=== PATIENT | female | born 1955 | race Caucasian/White ===

== ENCOUNTER → 2017-12-06 | Outpatient (CLI) | payer MEDICARE, OTHER ==
[~2017-12-06] MED LIST: AMPH1TAB66 PO; ASPI1TAB93 PO; CLON2TAB PO; KLON2TAB PO; LEVO.2 PO; LEVO200T4 PO; LORT5TAB PO; MECL-72 PO; MIRTA15 PO; OXYC1TAB36 PO; QUET1TAB10 PO
[2017-12-06 10:07] LABS: AUTOMATED NEUTROPHIL # 5.8 TH/MM3 (1.8-7.7); BASOPHIL # 0.1 TH/MM3 (0-0.2); BASOPHIL % 0.7 % (0.0-2.0); EOSINOPHIL # 0.4 TH/MM3 (0-0.4); EOSINOPHIL % 4.3 % (0.0-4.0); HEMATOCRIT 38.5 % (35.0-46.0); HEMOGLOBIN 13.1 GM/DL (11.6-15.3); LYMPH % 24.3 % (9.0-44.0); LYMPHOCYTE # 2.2 TH/MM3 (1.0-4.8); MEAN CELL VOLUME 87.7 FL (80.0-100.0); MEAN CORPUSCULAR HEMOGLOBIN 29.9 PG (27.0-34.0); MEAN CORPUSCULAR HGB CONC 34.1 % (32.0-36.0); MEAN PLATELET VOLUME 8.6 FL (7.0-11.0); MONO % 6.4 % (0.0-8.0); MONOCYTE # 0.6 TH/MM3 (0-0.9); NEUT % 64.3 % (16.0-70.0); PLATELET COUNT 204 TH/MM3 (150-450); RED BLOOD COUNT 4.38 MIL/MM3 (4.00-5.30); RED CELL DISTRIBUTION WIDTH 13.9 % (11.6-17.2)
[2017-12-06 10:16] LABS: BILIRUBIN, URINE NEG (NEG); BLOOD, URINE MOD (NEG); GLUCOSE,URINE NEG (NEG); KETONE, URINE NEG (NEG); NITRITE,URINE NEG (NEG); URINE COLOR YELLOW (YELLW/STRAW); URINE LEUKOCYTE ESTERASE NEG (NEG)
[2017-12-06 10:18] LABS: MUCUS URINE FEW /lpf (OCC); SQUAMOUS EPITHELIAL CELL URINE 1 /hpf (0-5)
[2017-12-06 10:18] LABS: PROTHROMBIN TIME - PATIENT 10.3 SEC (9.8-11.6)
[2017-12-06 10:41] LABS: ALBUMIN 3.6 GM/DL (3.4-5.0); AST (GOT) 15 U/L (15-37); BLOOD UREA NITROGEN 18 MG/DL (7-18); CALCIUM 9.1 MG/DL (8.5-10.1); CHLORIDE 104 MEQ/L (98-107); CREATININE 0.82 MG/DL (0.50-1.00); GLOMERULAR FILTRATION RATE 71 ML/MIN (>89); GLUCOSE,FASTING 91 MG/DL (74-99); SODIUM (NA) 142 MEQ/L (136-145)
[2017-12-06 10:46] LABS: ALKALINE PHOSPHATASE 96 U/L (45-117); ALT (GPT) 21 U/L (10-53); TOTAL BILIRUBIN ADULT 0.2 MG/DL (0.2-1.0); TOTAL PROTEIN 7.1 GM/DL (6.4-8.2)
--- NOTE | 2017-12-06 11:00 | RADRPT ---
EXAM DATE: 12/06/2017 10:50 AM EDT AGE/SEX: 62 years / Female INDICATIONS: Evaluate for pneumonia, pneumothorax and communicable diseases. Pre-op back surgery CLINICAL DATA: This is the patient's initial encounter. Patient reports that signs and symptoms have been present for 1 day and indicates a pain score of 0/10. MEDICAL/SURGICAL HISTORY: Carcinoma, breast. Mastectomy, right. COMPARISON: No prior [facility] exams available for comparison. FINDINGS: PA and lateral views of the chest demonstrate the lungs to be symmetrically aerated withou t evidence of mass, infiltrate or effusion. There is some chronic interstitial changes bilaterally. T he cardiomediastinal contours are unremarkable. Osseous structures are intact. There is scoliosis of the thoracic and lumbar spine. There is curvature of the thoracic spine to the left in the lumbar spi ne to the right. CONCLUSION: No acute pulmonary infiltrates. Chronic interstitial changes bilaterally. Electronically signed by: Randolph Marinelli MD 12/06/2017 10:58 AM EDT
--- NOTE | 2017-12-06 16:49 | EKG ---
Date Performed: 12/06/2017 Time Performed: 09:37:26 PTAGE: 62 years EKG: Sinus rhythm POSSIBLE LEFT ATRIAL ENLARGEMENT BORDERLINE ECG PREVIOUS TRACING : 05/04/2008 06.48 Since the previous tracing, no significant change noted DOCTOR: Mike Kemp Interpretating Date/Time 12/06/2017 16:47:54
== END ==
LOC: CPRE 09:08
PROVIDERS: ATTEND Neurological Surgery
DX: Z01.812 Encounter for preprocedural laboratory examination (principal); Z01.811 Encounter for preprocedural respiratory examination; Z01.810 Encounter for preprocedural cardiovascular examination; M51.16 Intervertebral disc disorders with radiculopathy, lumbar region; R94.31 Abnormal electrocardiogram [ECG] [EKG]
CPT/HCPCS: 36415; 71046; 80053; 81001; 85025; 85610; 85730; 87640; 87641; 93005

== ENCOUNTER 2017-12-09 10:30 | Observation (INO) | payer MEDICARE, OTHER ==
[~2017-12-09] VITALS: Ht 152.4 cm; Wt 65.8 kg
[~2017-12-09 10:30] MED LIST changes: -KLON2TAB PO; -LEVO.2 PO; -LORT5TAB PO; -MIRTA15 PO
[2017-12-09] MEDS ORDERED: ceFAZolin 2 GM/NS PREMIX 100 ML IV SCH (11:00)
[2017-12-09] MEDS ORDERED: SODIUM CHLORID 0.9% 500 ML IV PRN (11:15)
[2017-12-09] MEDS ORDERED: LACTATED RINGER'S 1000 ML IV PRN (11:15)
[2017-12-09] MEDS ORDERED: METOPROLOL TARTRATE 25 MG TAB PO PRN (11:15)
[2017-12-09] MEDS ORDERED: CHLORHEXIDINE GLUCONATE 2 % 1 PACK (2 CLOTHS) TOPICAL PRN (11:15)
[2017-12-09] MEDS ORDERED: INSULIN HUMAN REGULAR 1,000 UNITS/10 ML VIAL SQ PRN (11:15)
[2017-12-09] MEDS ORDERED: POVIDONE IODINE 5% (ANTISEPSIS KIT) 4 APPLICATIONS EACH NARE PRN (11:15)
[2017-12-09] MEDS ORDERED: THROMBIN (TOPICAL) 5,000 UNIT VIAL ONE (11:34)
[2017-12-09] MEDS ORDERED: BUPIVACAINE/EPINEPHRINE 0.5% PF 10 ML VIAL ONE (11:34)
[2017-12-09] MEDS ORDERED: methylPREDNISolone ACETATE 40 MG/ML VIAL ONE ×2 (11:35→13:27)
[2017-12-09] MEDS ORDERED: GELFOAM SIZE 100 ONE (11:35)
[2017-12-09] MEDS ORDERED: GENTAMICIN SULFATE 80 MG/2 ML VIAL ONE (11:35)
[2017-12-09] MEDS ORDERED: ceFAZolin 2 GM PREMIX 50 ML ONE ×2 (11:35→11:39)
[2017-12-09] MEDS ORDERED: ARTIFICIAL TEARS OPTH OINT 3.5 APPLIC/3.5 GM TUBO ONE (13:52)
[2017-12-09] MEDS ORDERED: ACETAMINOPHEN 1000 MG/100 ML 100 ML IV ONE (13:52)
--- NOTE | 2017-12-09 15:14 | HHI.DCPOC ---
Discharge Care Plan Diagnosis: (1) S/P lumbar laminectomy Goals to Promote Your Health * To prevent worsening of your condition and complications * To maintain your health at the optimal level Directions to Meet Your Goals Take your medications as prescribed Follow your dietary instruction Follow activity as directed Keep your appointments as scheduled Take your immunizations and boosters as scheduled If your symptoms worsen call your PCP, if no PCP go to Urgent Care Center or Emergency Room Smoking is Dangerous to Your Health. Avoid second hand smoke Call the 24-hour hour crisis hotline for domestic abuse at Maira Pasrons December 09, 2017 15:14
[2017-12-09] MEDS ORDERED: ACETAMINOPHEN 325 MG TAB PO PRN (16:45)
[2017-12-09] MEDS ORDERED: MECLIZINE HCL 25 MG TAB PO PRN (16:45)
[2017-12-09] MEDS ORDERED: MORPHINE SULFATE 4 MG/ML INJ IV PUSH PRN ×2 (16:45)
[2017-12-09] MEDS ORDERED: OXYC1TAB36 PO (16:45)
[2017-12-09] MEDS ORDERED: ASPIRIN ACETAMINOPHEN CAFFEINE PO PRN (16:45)
[2017-12-09] MEDS ORDERED: ACETAMINOPHEN/HYDROcodone 325 MG/10 MG TAB PO PRN (16:45)
[2017-12-09] MEDS ORDERED: oxyCODONE/ACETAMINOPHEN 10 MG/325 MG TAB PO PRN (16:45)
--- NOTE | 2017-12-09 16:53 | PD.OP ---
Operative Report Date of Surgery: December 09, 2017 Preoperative Diagnosis: Lumbar spinal stenosis Postoperative Diagnosis: Lumbar spinal stenosis Procedure: L4-5, L5-S1 right hemilaminectomy, mesiofacetectomy, foraminotomy, microsurgical resection of the disk Anesthesia: general endotracheal Surgeon: Jhon Menjivar Business Unit Controller(s): Pebbles Erwin Operation and Findings: INDICATIONS FOR THE SURGICAL PROCEDURE Ms Amin is a 62 year-old female who presented with intractable mechanical back pain and clinical evidence of right L5 and S1 lower extremity radiculopathy. She was found to have significant lumbar spinal stenosis with significant mass effect on the neural structures which correlated with the clinical symptoms. She failed maximum nonsurgical management including multiple modalities of conservative treatment as well as pain management interventions by an interventional pain specialist. A surgical decompression was indicated as a last resort. The [id number]-akzi details of the procedure, indications, alternatives, risks and potential complications were fully discussed with the patient. The patient fully understood. All the questions were answered. No guarantees were given. The patient voiced requesting the procedure and provided informed consents. The patient was offered the alternative of delaying the procedure and continuing with nonsurgical management. DETAILS OF THE SURGICAL PROCEDURE After the induction of general anesthesia, endotracheal intubation was performed. A Quispe catheter, bilateral WILLIAM hose and sequential compression devices were placed and kept throughout the procedure. The patient was positioned prone on a Ryan table over a Jordan frame. All pressure points were carefully padded with eggcrate mattress. The eyes were tapped shut after ointment was applied by the anesthesiologist to prevent corneal abrasion. A Kandi hugger was placed over the exposed lower body to maintain control of the core body temperature. The lower lumbar region was prepped and draped in the usual sterile fashion. A spinal needle was placed for localization and an x- ray performed with a C-arm. A skin incision was made in the midline over the spinous processes L4-S1 with a #10 blade. Small subcutaneous bleeders were controlled with a bipolar and the dissection was carried out through the lumbar fascia exposing the spinous processes. A subperiostial dissection was performed with a Schwab elevator and a Bovie over the right L4, L5, S1 spinous process lamina and facets. A microdiscectomy self-retaining retractor was placed on the incision and an x- ray was obtained with an instrument placed underneath the lamina of L4. At this point in the procedure the operating microscope was draped in the usual sterile fashion and brought to the field. The rest of the surgical procedure was performed using microsurgical dissection technique with exception of the closure. Once the level was confirmed, a decompressive laminectomy was performed on the right side at L4-5 andf L5-S1 using the TPS drill with an 4mm drill bit. A medial facetectomy was performed and the superior free border of the ligamentum flavum was dissected with a ligament dissector and removed with a thin footplate 2 mm Kerrison. The medial facetectomy was done and the L5 and S1 nerve roots were identified and followed towards its exit in the foramen. Epidural veins located laterally to the dural sac were coagulated with a bipolar and incised with microscissors. Gentle medial retraction of the dural sac allowed inspection of the disc space. The patient had severe facet arthropathy with hypertrhopy of the joint facets and ligamentum flavum resulting in mass effect over the dural sac and nerve roots. In addition, there was a broad-based disc protusion, contributing to the stenosis. The annulus fibrosus of the disc was coagulated with the bipolar and incised with an 11 blade. The extruded disc was carefully dissected from the surrounding tissue and removed with pituitary forceps. Then, a microdiscectomy was carried out at L4-5 and L5-S1 in the standard fashion using straight and up- biting pituitary forceps. A good decompression of the dural sac and nerve root was achieved. The exit of the nerve root was inspected for residual disc fragments and hemostasis was secured with the bipolar. The incision was irrigated with a large amount of saline solution. A Valsalva maneuver failed to show any cerebrospinal fluid leak or bleeding. The decompression was assessed again and found to be satisfactory. The incision was then closed in layers. The fascia was closed with 0 Vicryl sutures in an interrupted fashion. The superficial fascia was closed with 0 Vicryl sutures. The fascia was infiltrated with 0.5% Marcaine with epinephrine 1:100,000 dilution. The subcutaneous tissue was irrigated then closed with 0 Vicryl and 3 -0 Vicryl. The skin was closed with 4-0 running subcuticular Vicryl. A sterile dressing was applied. At the end of the procedure, the sponge, needle and instrument counts were all correct. Estimated blood loss was less than 70 cc. No blood transfusion was given. No intraoperative complications occurred. The patient received prophylactic antibiotics. The patient was then extubated and transferred to the recovery room in stable condition. Jhon Menjivar MD December 09, 2017 16:53
[2017-12-09] MEDS: NS + KCL 20 MEQ INJ 1,000 ML IV SCH (17:00)
[2017-12-09] MEDS ORDERED: DO NOT ADM ANY ANTICOAGULANT DRUGS PRN (17:13)
[2017-12-09] MEDS ORDERED: *RESP: ALBUTEROL 2.5 MG/3 ML NEB (PRN) PERIprocedural Use ONLY NEB ONE (17:17)
[2017-12-09] MEDS ORDERED: *morphine SULFATE 4 MG/ML PERIprocedure ONLY ONE (17:17)
[2017-12-09] MEDS ORDERED: MIDAZOLAM HCL 2 MG/2 ML VIAL ONE ×2 (17:23→17:32)
[2017-12-09] MEDS ORDERED: ONDANSETRON HCL 4 MG/2 ML VIAL IV PUSH ONE (17:31)
[2017-12-09] MEDS ORDERED: DEXAMETHASONE SOD PHOS 4 MG/ML VIAL IV ONE (17:31)
[2017-12-09] MEDS ORDERED: PHENYLEPH/NS 1000 MCG/10 ML SYR IV ONE (17:31)
[2017-12-09] MEDS ORDERED: NEOSTIGMINE 5 MG/5 ML SYRINGE IV PUSH ONE (17:31)
[2017-12-09] MEDS ORDERED: LACTATED RINGER'S 1000 ML INJ 1,000 ML IV ONE (17:31)
[2017-12-09] MEDS ORDERED: GLYCOPYRROLATE 1 MG/5 ML SYRINGE IV PUSH ONE (17:31)
[2017-12-09] MEDS ORDERED: LIDOCAINE HCL 1% PF 5 ML SYRINGE OTHER ONE (17:31)
[2017-12-09 18:24] VITALS: BP 147/80; PULSE 84; RESP 17; TEMP 97.5; O2SAT 93
[2017-12-09] MEDS: clonazePAM 1 MG TAB PO SCH (18:27)
[2017-12-09] MEDS: ACETAMINOPHEN/HYDROcodone 325 MG/10 MG TAB PO PRN ×2 (18:28→23:08)
--- NOTE | 2017-12-09 19:38 | RADRPT ---
EXAM DATE: 12/09/2017 6:10 PM EDT AGE/SEX: 62 years / Female INDICATIONS: Level restaurant kitchen manager L4,L5 and L5,S1 for laminectomy. CLINICAL DATA: This is the patient's initial encounter. Patient reports that signs and symptoms have been present for 1 day and indicates a pain score of Nonresponsive. MEDICAL/SURGICAL HISTORY: None. None. COMPARISON: No prior [facility] exams available for comparison. FINDINGS: Lateral view reveals surgical instruments overlying the posterior elements at L4-5. Normal alignment across the lumbosacral junction. CONCLUSION: Surgical instruments overlying the posterior elements at L4 and L5. Normal alignment. Electronically signed by: Oneal Lange MD 12/09/2017 7:37 PM EDT
[2017-12-09 19:51] VITALS: BP 177/84; PULSE 73; RESP 18; TEMP 97.7; O2SAT 96
[2017-12-09] MEDS ORDERED: QUEtiapine FUMARATE 300 MG TAB PO SCH (21:00)
[2017-12-09] MEDS: DOCUSATE SODIUM 100 MG CAP PO SCH (21:54)
[2017-12-09] MEDS: ceFAZolin 2 GM PREMIX 50 ML IV SCH (21:55)
[2017-12-09 23:04] VITALS: BP 164/92; PULSE 107; RESP 17; TEMP 97.7; O2SAT 96
[2017-12-10 03:18] VITALS: BP 136/66; PULSE 110; RESP 17; TEMP 98.4; O2SAT 94
[2017-12-10] MEDS: ACETAMINOPHEN/HYDROcodone 325 MG/10 MG TAB PO PRN ×3 (03:31→13:30)
[2017-12-10] MEDS: NS + KCL 20 MEQ INJ 1,000 ML IV SCH ×2 (03:35→13:20)
[2017-12-10] MEDS: ceFAZolin 2 GM PREMIX 50 ML IV SCH (05:50)
[2017-12-10] MEDS ORDERED: LEVOTHYROXINE SODIUM 200 MCG TAB PO SCH (06:00)
[2017-12-10 08:00] VITALS: BP 128/69; PULSE 99; RESP 18; TEMP 98.2; O2SAT 97
[2017-12-10] MEDS: clonazePAM 1 MG TAB PO SCH ×2 (08:48→13:29)
[2017-12-10] MEDS: DOCUSATE SODIUM 100 MG CAP PO SCH (08:48)
[2017-12-10] MEDS ORDERED: DEXTROAMPHETAMINE/AMPHETAMINE 20 MG TAB PO SCH (09:00)
[2017-12-10] MEDS ORDERED: PANTOPRAZOLE SOD 40 MG DELAYED RELEASE TAB PO SCH (09:00)
[2017-12-10 12:00] VITALS: BP 128/63; PULSE 100; RESP 19; TEMP 98; O2SAT 96
--- NOTE | 2017-12-10 16:18 | HHI.NSPN ---
History Chief Complaint: Low back pain Interval History 12/09: The patient presented to [facility] to have an L4-5 and L5-S1 right hemilaminectomy, mesiofacetectomy and foraminotomy with microsurgical resection of the disk. Post-operatively the patient was admitted to a regular med/surg floor for further care and monitoring. 12/10: The patient is awake and alert in bed with Nursing at the bedside going over her discharge instructions. The patient does say she has some pain to the lower back and admits that she did get up by herself earlier and twisted prior to the brace being brought in for her. She does say she is intermittently coughing and voice is slightly raspy. She denies any pain, numbness or tingling to the lower extremities. She is mildly to moderately tender at the surgical incision. She has no sensorimotor deficits upon testing. Exam Results 12/08/17 12/08/17 12/09/17 12/09/17 12/10/17 12/10/17 05:59 17:59 05:59 17:59 05:59 17:59 Intake Total 1200 ml 1770 ml Output Total 270 ml 1850 ml Balance 930 ml -80 ml Intake Oral 720 ml IV Total 1050 ml Other 1200 ml Output Urine Total 1850 ml Estimated Blood Loss 70 ml Other 200 ml # Bowel Movements 0 Vital Signs Date Time Temp Pulse Resp B/P (MAP) Pulse Ox O2 Delivery O2 Flow Rate FiO2 12/10/17 08:00 98.2 99 18 128/69 (88) 97 12/10/17 03:18 98.4 110 17 136/66 (89) 94 12/09/17 23:04 97.7 107 17 164/92 (116) 96 12/09/17 19:51 97.7 73 18 177/84 (115) 96 12/09/17 19:28 18 12/09/17 18:24 97.5 84 17 147/80 (102) 93 12/09/17 18:00 95 19 152/78 (102) 100 Nasal Cannula 3 12/09/17 17:45 89 19 134/63 (86) 97 Nasal Cannula 4 12/09/17 17:30 92 19 151/71 (97) 98 Nasal Cannula 4 12/09/17 17:15 100 19 156/72 (100) 99 Nasal Cannula 4 12/09/17 17:13 98.4 97 19 149/70 (96) 100 Nasal Cannula 4 12/09/17 11:20 97.7 94 20 133/73 (93) 97 Physical Examination GENERAL: Awake & alert in bed. Affect essentially normal & readily interacts. No evident distress. LSO brace in room on bedside tray. HEENT: Normocephalic, atraumatic. RESPIRATORY: CTAB w/o W/R/R, equal excursion, nonlaboured, moist cough, on RA. CARDIOVASCULAR: S1S2 w/RRR w/o M/G/R. GASTROINTESTINAL: Abdomen soft, nontender, positive bowel sounds. MUSCULOSKELETAL: CRABTREE spontaneously & purposefully w/o difficulty. No evident clubbing or deformity. NEUROLOGICAL: AAOx3. Speech clear & appropriate. Follows simple commands w/o difficulty. Sensation intact to light touch to the lower extremities. Motor strength is 5/5 to all major flexion & extension muscle groups of the lower extremities. Referred low back pain w/testing. Lab, Micro, Other Results Recent Impressions Lumbar Spine X-Ray 12/09/17 0000 Signed Impressions: CONCLUSION: Surgical instruments overlying the posterior elements at L4 and L5. Normal alig nment. Medical Decision Making Impression and Plan Impression: Lumbar spinal stenosis S/p L4-5, L5-S1 right hemilaminectomy, mesiofacetectomy, foraminotomy, microsurgical resection of the disk () The patient is doing fairly well. She does have some low back pain at the surgical incision. No sensorimotor deficits are noted. Afebrile since admission. Intermittent tachycardia. SBP intermittently elevated. Plan: Neuro checks q4h. VS q4h. Keep Optifoam dressing in place x7d. Mobilise patient w/assistance. Corset brace when OOB. Physical Therapy eval & tx. Patient discharged home. Vargas Elizondo December 10, 2017 16:18
--- NOTE | 2017-12-11 10:46 | HHI.DS ---
Discharge Summary Admission Date December 09, 2017 at 17:06 Discharge Date: December 10, 2017 Admitting Diagnosis s/p lumbar laminectomy (1) S/P lumbar laminectomy ICD Code: Z98.890 - Other specified postprocedural states Brief History Ms Amin is a 62 year-old female who presented with intractable mechanical back pain and clinical evidence of right L5 and S1 lower extremity radiculopathy. She was found to have significant lumbar spinal stenosis with significant mass effect on the neural structures which correlated with the clinical symptoms. She failed maximum nonsurgical management including multiple modalities of conservative treatment as well as pain management interventions by an interventional pain specialist. A surgical decompression was indicated as a last resort. Imaging Last Impressions Lumbar Spine X-Ray 12/09/17 0000 Signed Impressions: CONCLUSION: Surgical instruments overlying the posterior elements at L4 and L5. Normal alig nment. Hospital Course Ms. Amin underwent a L4-5, L5-S1 right hemilaminectomy, mesiofacetectomy, foraminotomy, microsurgical resection of the disk on December 09, 2017 for lumbar spinal stenosis. She was discharged the following day in stable conditions. Pt Condition on Discharge: Stable Discharge Disposition: Discharge Home Discharge Instructions DIET: Follow Instructions for: Heart Healthy Diet ACTIVITIES You can perform: Weight Bearing As Moy ADDITIONAL Activity Instructio: Avoid strenuous activities, heavy lifting over 5 lbs, overhead activities, repetitive bending, twisting, pushing, pulling or any activities which might result in stress over the spine. Avoid situation that will put at risk for falls. Use assistive device as needed for walking. Wear provided back brace when out of bed. Continued Medications: Amphetamine-Dextroamphetamine (Amphetamine-Dextroamphetamine) 20 Mg Tab 20 MG PO DAILY for Hyperactivity Control, #30 TAB 0 Refills Avoid late evening doses. Space doses at least 4 to 6 hours if more than once/day dosing. Phvigjj-Kseqfbgzplwzs-Jkmehvvk (Excedrin Extra Strength) 250 Mg-250 Mg-65 Mg Tab 2 TAB PO Q6HR PRN for PAIN SCALE 1 TO 10 Clonazepam (Clonazepam) 2 Mg Tab 2 MG PO TID, #90 TAB 0 Refills Levothyroxine (Levothyroxine) 200 Mcg Tab 200 MCG PO DAILY for Thyroid, #30 TAB 0 Refills Meclizine HCl (Motion Sickness II) 25 Mg Tablet 1 TAB PO Q6HR PRN for NAUSEA Oxycodone-Acetaminophen (Oxycodone-Acetaminophen) 10-325 mg Tab 1 TAB PO Q6H PRN for PAIN, #30 TAB 0 Refills (This prescription has been renewed ) Quetiapine (Quetiapine) 300 Mg Tab 300 MG PO HS, #30 TAB 0 Refills Maira Parsons December 11, 2017 10:46
== END 2017-12-10 17:32 | disposition home or self-care (01) ==
LOC: HSDC 10:30 → HSDI 17:06 → N06A 18:12
PROVIDERS: ADMIT Neurological Surgery; ATTEND Neurological Surgery
DX: M51.16 Intervertebral disc disorders with radiculopathy, lumbar region (principal); M48.062 Spinal stenosis, lumbar region with neurogenic claudication; M54.5 Low back pain; M79.662 Pain in left lower leg; M79.661 Pain in right lower leg; G89.29 Other chronic pain; M06.9 Rheumatoid arthritis, unspecified; Z79.891 Long term (current) use of opiate analgesic
CPT/HCPCS: 00630; 63030; 63035; 72020; 76000; 94150; 96365; 97163; 97530; G0378; G8987; G8988; J0131; J0690; J1030; J1100; J1580; J2250; J2270; J2370; J2405; J2710; J3010; J3480; J7120; J7613